=== PATIENT | female | born 1970 | race Two or more races ===

== ENCOUNTER 2018-06-14 02:49 | Emergency (ER) | payer SELFPAY ==
[~2018-06-14] VITALS: Ht 165.1 cm; Wt 95.2 kg
[2018-06-14 02:50] VITALS: BP 165/92
[2018-06-14] MEDS ORDERED: METF1000 PO (02:56)
[2018-06-14] MEDS ORDERED: INSU100V11 SC (02:56)
--- NOTE | 2018-06-14 03:22 | NUR ---
Break RN: patient back from X ray. in bathroom at this time.
[2018-06-14 03:26] LABS: BASOPHILS % (AUTO) 0 % (0-1); EOSINOPHILS # (AUTO) 0.01 x10^3/uL (0-0.4); EOSINOPHILS % (AUTO) 0 % (1-7); LYMPHOCYTES # (AUTO) 1.47 x10^3/uL (1-3.4); LYMPHOCYTES % (AUTO) 12 % (22-44); MD NO; MEAN CORPUSCULAR HEMOGLOBIN 24.8 pg (27.0-34.8); MEAN CORPUSCULAR HGB CONC 32.2 g/dL (32.4-35.8); MEAN CORPUSCULAR VOLUME 76.8 fL (80-100); MEAN PLATELET VOLUME 9.5 fL (7.4-10.4); MONOCYTES # (AUTO) 0.07 x10^3/uL (0.2-0.8); MONOCYTES % (AUTO) 1 % (2-9); NEUTROPHILS # (AUTO) 10.84 x10^3/uL (1.8-6.8); NEUTROPHILS % (AUTO) 88 % (42-75); PLATELET COUNT 263 x10^3/uL (130-400); RED BLOOD COUNT 5.03 x10^6/uL (3.82-5.3); RED CELL DISTRIBUTION WIDTH 17.1 % (9.6-15.2)
[2018-06-14 03:39] LABS: ALANINE AMINOTRANSFERASE 29 U/L (12-78); ALBUMIN 3.9 g/dL (3.4-5.0); ANION GAP 8 mmol/L (5-15); CALCIUM 8.6 mg/dL (8.5-10.1); CHLORIDE 100 mmol/L (98-107); CREATININE 0.87 mg/dL (0.55-1.02)
--- NOTE | 2018-06-14 03:46 | NUR ---
FLEETS GIVEN ORDERED AND PT HOLDING IT IN AT THIS TIME. BSC IN PLACE AND PT AWAITING RESULTS.
[2018-06-14 03:49] LABS: ALKALINE PHOSPHATASE 132 U/L (45-117); BILIRUBIN,TOTAL 0.5 mg/dL (0.2-1.0)
[2018-06-14 04:02] LABS: FREE T4 (FREE THYROXINE) 0.93 ng/dL (0.76-1.46)
[2018-06-14] MEDS ORDERED: PINK LADY ENEMA 490 ML BOTTLE PR STA (04:05)
[2018-06-14] MEDS ORDERED: KETOROLAC 30 MG/1 ML ONE (04:18)
[2018-06-14] MEDS ORDERED: INSULIN SINGLE DOSE, ER SQ-INSULIN ONE (04:20)
[2018-06-14] MEDS ORDERED: KETOROLAC 30 MG/1 ML IM ONE (04:30)
[2018-06-14] MEDS ORDERED: INSULIN REGULAR 100 UNITS/ML, 3ML VIAL SQ-INSULIN SCH (07:00)
== END 2018-06-14 05:14 | disposition home or self-care (01) ==
LOC: ED 04:50
DX: K59.00 Constipation, unspecified (principal); E03.9 Hypothyroidism, unspecified; E11.65 Type 2 diabetes mellitus with hyperglycemia
CPT/HCPCS: 36415; 74021; 80053; 84439; 84443; 85025; 96372; 99284; J1885